=== PATIENT | female | born 2000 | race Caucasian/White ===

== ENCOUNTER 2022-09-02 04:56 | Emergency (ER) | payer OTHER, SELFPAY ==
[~2022-09-02] VITALS: Ht 160 cm; Wt 68.2 kg
[2022-09-02 07:15] VITALS: BP 121/64
== END 2022-09-02 07:55 | disposition left against medical advice (07) ==
LOC: M ED 04:56
DX: Z53.21 Procedure and treatment not carried out due to patient leaving prior to being seen by health care provider (principal)

== ENCOUNTER 2022-09-02 10:40 | Emergency (ER) | payer OTHER, SELFPAY ==
[~2022-09-02] VITALS: Ht 160 cm; Wt 67.9 kg
[2022-09-02 10:42] VITALS: BP 133/76
[2022-09-02 12:09] LABS: BASO % 0.4 % (0.0-1.0); EOS # 0.1 10^3/uL (0.0-0.5); EOS % 0.8 % (0.0-3.0); HEMATOCRIT 46.5 % (36.0-47.0); HEMOGLOBIN 15.8 g/dl (12.0-15.5); LYMPH # 1.7 10^3/uL (1.5-5.0); LYMPH % 21.3 % (24.0-44.0); MEAN CORPUSCULAR HEMOGLOBIN 31.4 pg (27.0-33.0); MEAN CORPUSCULAR VOLUME 92.4 fl (80.0-96.0); MONO # 0.5 10^3/uL (0.0-0.8); MONO % 6.7 % (2.0-8.0); NEUTROPHILS # 5.5 10^3/uL (1.5-8.5); NEUTROPHILS % 70.4 % (36.0-66.0); PLATELET COUNT, AUTOMATED 249 10^3/uL (150-450); RED BLOOD COUNT 5.03 10^6/uL (4.00-5.40); WHITE BLOOD COUNT 7.9 10^3/uL (4.0-10.0)
[2022-09-02 12:35] LABS: BLOOD UREA NITROGEN 9 MG/DL (9-23); CALCIUM LEVEL 9.6 MG/DL (8.5-10.1); CARBON DIOXIDE LEVEL 25 MMOL/L (20-31); CHLORIDE LEVEL 105 MMOL/L (98-107); CREATININE FOR GFR 0.64 MG/DL (0.55-1.30); GLUCOSE, FASTING 97 MG/DL (60-100); SODIUM LEVEL 137 MMOL/L (136-145)
== END 2022-09-02 16:54 | disposition home or self-care (01) ==
LOC: M ED 10:40
DX: U07.1 COVID-19 (principal); Z88.1 Allergy status to other antibiotic agents

== ENCOUNTER → 2022-11-23 | Outpatient (REF) | payer OTHER | LOC: M LAB REF 16:50 | PROVIDERS: ATTEND Nurse Practitioner Family | DX: J02.9 Acute pharyngitis, unspecified (principal) ==

== ENCOUNTER → 2023-08-07 | Outpatient (REF) | payer OTHER | LOC: M LAB REF 17:36 | PROVIDERS: ATTEND Physician Assistant | DX: J02.9 Acute pharyngitis, unspecified (principal) ==